=== PATIENT | female | born 1940 | race Hispanic/Latino ===

== ENCOUNTER 2019-10-19 13:34 | Emergency (ER) | payer MEDICARE, OTHER ==
[~2019-10-19] VITALS: Ht 162.6 cm; Wt 63.5 kg
--- NOTE | 2019-10-19 15:00 | Diagnostic Imaging Report ---
EXAMINATION: FOREARM RIGHT 2 VIEW INDICATION: Trauma COMPARISON: None FINDINGS: No acute fracture or dislocation. Alignment appears anatomic. No substantial degenerative change. Arterial atherosclerotic calcifications. IMPRESSION: No acute osseous injury. Signed by: Brielle Martin MD on 10/19/2019 2:56 PM
--- NOTE | 2019-10-19 15:02 | Diagnostic Imaging Report ---
EXAMINATION: ELBOW RIGHT COMPLETE, HUMERUS RIGHT 2+VIEWS INDICATION: Trauma COMPARISON: None FINDINGS: No acute fracture or dislocation. No elbow joint effusion. Alignment appears anatomic. Soft tissues appear unremarkable. IMPRESSION: No acute osseous injury. Signed by: Brielle Martin MD on 10/19/2019 2:58 PM
--- NOTE | 2019-10-19 15:08 | Diagnostic Imaging Report ---
EXAMINATION: KNEE LEFT THREE VIEWS INDICATION: Trauma COMPARISON: None FINDINGS: No acute fracture or dislocation. Alignment appears anatomic. Small knee joint effusion. Mild tricompartmental degenerative changes. Diffuse atherosclerotic calcifications. IMPRESSION: No acute osseous injury. Mild tricompartmental degenerative changes. Small joint effusion. Signed by: Brielle Martin MD on 10/19/2019 3:04 PM
[2019-10-19 17:23] VITALS: BP 132/79
--- OUTSIDE RECORDS SUMMARY | 2019-10-20 14:06 | XMS REPORT ---
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 Allergies, Adverse Reactions, Alerts This patient has no known allergies or adverse reactions. Medications This patient has no known medications. Results Test Description Test Time Test Comments Text Results Atomic Results Result Comments KNEE LEFT THREE VIEWS 2019-10-19 14:58:00 [place] [id number] Patient Name: KELVIN MICHAEL MR #: [id number] : 1940 Age/Sex: 79/F Req #: [id number] Adm Physician: Ordered by: REUBEN ORTIZ PUPPET MASTER Report #: [id number] Location: ER Room/Bed: Procedure: [id number] DX/KNEE LEFT THREE VIEWS Exam Date: 10/19/19 Exam Time: 1403 REPORT STATUS: Signed EXAMINATION: KNEE LEFT THREE VIEWS INDICATION : Trauma COMPARISON: None FINDINGS: No acute fracture or dislocation. Alignment appears anatomic. Small knee joint effusion. Mild tricompartmental degenerative changes. Diffuse atherosclerotic calcifications. IMPRESSION: No acute osseous injury. Mild tricompartmental degenerative changes. Small joint effusion. Signed by: Hesham Martin MD on 10/19/2019 3:04 PM Dictated By: HESHAM MARTIN MD [id number] Transcribed By: LEAH on 10/19/19 1636 COPY TO: REUBEN ORTIZ PUPPET MASTER HUMERUS RIGHT 2+VIEWS 2019-10-19 14:56:00 [place] [id number] Patient Name: KELVIN MICHAEL MR #: [id number] : 1940 Age/Sex: 79/F Req #: [id number] Adm Physician: Ordered by: REUBEN ORTIZ PUPPET MASTER Report #: [id number] Location: ER Room/Bed: Procedure: [id number] DX/HUMERUS RIGHT 2+VIEWS Exam Date: 10/19/19 Exam Time: 1403 REPORT STATUS: Signed EXAMINATION: ELBOW RIGHT COMPLETE, HUMERUS RIGHT 2+VIE WS INDICATION: Trauma COMPARISON: None FINDINGS: No acute fracture or dislocation. No elbow joint effusion. Alignment appears anatomic. Soft tissues appear unremarkable. IMPRESSION: No acute osseous injury. Signed by: Hesham Martin MD on 10/19/2019 2:58 PM Dictated By: HESHAM MARTIN MD [id number] Transcribed By: LEAH on 10/19/19 7206 COPY TO: REUBEN ORTIZ PUPPET MASTER ELBOW RIGHT COMPLETE 2019-10-19 14:56:00 [place] [id number] Patient Name: KELVIN MICHAEL MR #: [id number] : 1940 Age/Sex: 79/F Req #: [id number] Adm Physician: Ordered by: REUBEN ORTIZ PUPPET MASTER Report #: [id number] Location: ER Room/Bed: Procedure: [id number] DX/ELBOW RIGHT COMPLETE Exam Date: 10/19/19 Exam Time: 1403 REPORT STATUS: Signed EXAMINATION: ELBOW RIGHT COMPLETE, HUMERUS RIGHT 2+VIEWS INDICATION: Trauma COMPARISON: None FINDINGS: No acute fracture or dislocation. No elbow joint effusion. Alignment appears anatomic. Soft tissues appear unremarkable. IMPRESSION: No acute osseous injury. Signed by: Hesham Martin MD on 10/19/2019 2:58 PM Dictated By: HESHAM MARTIN MD 57 Transcribed By: LEAH on 10/19/191457 COPY TO: REUBEN ORTIZ NP FOREARM RIGHT 2 VIEW 2019-10-19 14:54:00 [place] [id number] Patient Name: KELVIN MICHAEL MR #: [id number] : 1940 Age/Sex: 79/F Req #: [id number] Adm Physician: Ordered by: REUBEN ORTIZ PUPPET MASTER Report #: [id number] Location: ER Room/Bed: Procedure: [id number] DX/FOREARM RIGHT 2 VIEW Exam Date: Exam Time: REPORT STATUS: Signed EXAMINATION: FOREARM RIGHT 2 VIEW INDICATION: Trauma CO MPARISON: None FINDINGS: No acute fracture or dislocation. Alignment appears anatomic. No substantial degenerative change. Arterial atherosclerotic calcifications. IMPRESSION: No acute osseous injury. Signed by: Hesham Martin MD on 10/19/2019 2:56 PM Dictated By: HESHAM MARTIN MD 55 Transcribed By: LEAH on 10/19/191455 COPY TO: REUBEN ORTIZ NP
== END 2019-10-19 17:00 | disposition home or self-care (01) ==
LOC: ER 16:24 → FSED 17:00
DX: M25.561 Pain in right knee (principal); M79.601 Pain in right arm; E11.9 Type 2 diabetes mellitus without complications; I69.354 Hemiplegia and hemiparesis following cerebral infarction affecting left non-dominant side; W01.0XXA Fall on same level from slipping, tripping and stumbling without subsequent striking against object, initial encounter; Y92.009 Unspecified place in unspecified non-institutional (private) residence as the place of occurrence of the external cause
CPT/HCPCS: 99284